=== PATIENT | male | born 1995 | race African-American/Black ===

== ENCOUNTER 2021-03-13 14:54 | Emergency (ER) | payer SELFPAY ==
[2021-03-13] MEDS ORDERED: ONE DAILY1 TA1 PO (15:16)
[2021-03-13 17:05] LABS: BASO # 0.04 (0.02-0.10); EOS # 0.15 (0.04-0.40); EOS % 2.1 % (0.0-4.0); HEMATOCRIT 43.9 % (42.0-52.0); HEMOGLOBIN 13.8 g/dL (13.5-18.0); LYMPH# 2.81 (1.50-4.00); MEAN CELL VOLUME 70 fl (78-100); MEAN CORPUSCULAR HEMOGLOBIN 22 pg (27-31); MEAN CORPUSCULAR HGB CONC 31 g/dL (33-37); MEAN PLATELET VOLUME 11.3 fl (7.4-10.4); MONO # 0.74 (0.20-0.80); NEU # 3.39 (1.40-6.50); PLATELET COUNT 186 K/mm3 (130-400); RED BLOOD COUNT 6.28 M/mm3 (4.20-5.60); RED CELL DISTRIBUTION WIDTH 16.5 % (11.5-14.5); WHITE BLOOD COUNT 7.1 K/mm3 (4.8-10.8)
[2021-03-13 17:09] LABS: ALBUMIN 3.9 g/dL (3.5-5.0); POTASSIUM 4.5 mmol/L (3.5-5.1)
[2021-03-13 17:11] LABS: TOTAL PROTEIN 7.2 g/dL (6.4-8.3)
[2021-03-13 17:13] LABS: TOTAL BILIRUBIN 0.4 mg/dL (0.2-1.2)
[2021-03-13] MEDS ORDERED: ISENTRESS400 MG PO (17:45)
[2021-03-13] MEDS ORDERED: TRUVADA PO (17:45)
[2021-03-13 18:19] VITALS: BP 129/86
[2021-03-13 18:28] LABS: URINE APPEARANCE HAZY; URINE COLOR YELLOW
[2021-03-13 18:29] LABS: PH-URINE 6.5 (5.0 - 8.0); URINE BILIRUBIN 1+ (NEGATIVE); URINE BLOOD NEGATIVE (NEGATIVE); URINE GLUCOSE NEGATIVE (NEGATIVE); URINE KETONE NEGATIVE (NEGATIVE); URINE LEUKOCYTE ESTERASE NEGATIVE (NEGATIVE); URINE NITRATE NEGATIVE (NEGATIVE); URINE PROTEIN(semi-quant) 1+ mg/dL (NEGATIVE); URINE UROBILINOGEN NORMAL (NORMAL); URINE WBC 0-1 /hpf (0-3)
[2021-03-14 00:08] LABS: HEPATITIS B SURFACE ANTIBODY 124.5 (()); HEPATITIS B SURFACE ANTIGEN Negative (Negative); HEPATITIS C VIRUS ANTIBODY Negative (Negative)
== END 2021-03-13 18:22 | disposition home or self-care (01) ==
LOC: ED 14:54
PROVIDERS: Nurse Practitioner Family
DX: Z20.6 Contact with and (suspected) exposure to human immunodeficiency virus [HIV] (principal); Z77.21 Contact with and (suspected) exposure to potentially hazardous body fluids